=== PATIENT | male | born 1995 | race Caucasian/White ===

== ENCOUNTER 2016-04-17 16:38 | Emergency (ER) | payer SELFPAY ==
[~2016-04-17] VITALS: Ht 180.3 cm; Wt 154.2 kg
[~2016-04-17 16:38] MED LIST: ALBU17AE3; MONT5TAB11
--- NOTE | 2016-04-17 17:15 | ED Cough/URI ---
General Chief Complaint: Cough/Cold/Flu Symptoms Stated Complaint: COUGH Nursing Triage Note: c/o cough/head congestion x 1 week. No acute distress noted. History of Present Illness Time seen by provider: 17:05 Initial Comments Patient presents for productive cough 1 week Timing/Duration: week Severity/Quality: productive cough (clear, green and yellow sputum production) Prior Episodes/Possible Cause: no prior episodes Modifying Factors: Improves With Rest Associated Symptoms: denies symptoms History of asthma, hasn't used a rescue inhaler in 6-8 years. Denies any wheezing or shortness of breath Allergies and Home Medications Allergies Coded Allergies: No Known Allergies (Unverified Allergy, Mild, 03/25/09) Home Medications Guaifenesin/Pseudoephedrne HCl 1 Each Tab.er.12h #12 1 EACH PO BID Prescribed by: LINO MAHONEY on 04/17/16 8329 Constitutional: no symptoms reported see HPI EENTM: nose congestion (worse approximately 3-4 days ago improving at this time) see HPINo dental problems, No ear pain, No hoarseness, No mouth pain, No throat pain, No throat swelling Respiratory: see HPI coughNo dyspnea on exertion, No hemoptysis, No wheezing Gastrointestinal: no symptoms reported see HPI Genitourinary: no symptoms reported see HPI Musculoskeletal: no symptoms reported see HPI Skin: no symptoms reported see HPI Psychiatric/Neurological: No Symptoms Reported See HPI Hematologic/Lymphatic: No Symptoms Reported See HPI Immunological/Allergic: no symptoms reported see HPI All Other Systems Reviewed Negative Unless Noted: Yes Past Rjdrfwg-Abwnae-Kespbl Hx Patient Social History Alcohol Use: Denies Use Recreational Drug Use: No Smoking Status: Never a Smoker Recent Foreign Travel: No Contact w/Someone Who Travel: No Recent Infectious Disease Expo: No Recent Hopitalizations: No Physical Abuse Screen: No Sexual Abuse: No Surgeries HX Surgeries: No Respiratory Hx Respiratory Disorders: Yes Respiratory Disorders: Asthma Cardiovascular Hx Cardiac Disorders: No Neurological Hx Neurological Disorders: No Reproductive System Hx Reproductive Disorders: No Genitourinary Hx Genitourinary Disorders: No Gastrointestinal Hx Gastrointestinal Disorders: No Musculoskeletal Hx Musculoskeletal Disorders: No Endocrine Hx Endocrine Disorders: No HEENT HX ENT Disorders: No Cancer Hx Cancer: No Psychosocial Hx Psychiatric Problems: No Integumentary HX Skin/Integumentary Disorder: No Blood Transfusions Hx Blood Disorders: No Reviewed Nursing Assessment Reviewed/Agree w Nursing PMH: Yes Physical Exam Vital Signs Vital Sign - Last 12Hours 04/17/16 16:59 Temp 97.5 Pulse 70 Resp 16 B/P 150/87 Pulse Ox 98 O2 Delivery Room Air Capillary Refill : Less Than 3 Seconds General Appearance: WD/WN no apparent distress Eyes: Bilateral Eye EOMI, Bilateral Eye Normal Inspection, Bilateral Eye PERRL HEENT: PERRL/EOMI normal ENT inspection TMs normalNo pharyngeal erythema, No tonsillar exudate, other (Right tonsil 2+, no erythema or exudate. No frontal or maxillary sinus tenderness. ) Neck: non-tender full range of motion normal inspectionNo lymphadenopathy (R) , No lymphadenopathy (L) Respiratory: chest non-tender lungs clear normal breath sounds no respiratory distress Cardiovascular: normal peripheral pulses regular rate, rhythm no edema no murmur Gastrointestinal: normal bowel sounds non tender soft no organomegaly no pulsatile mass Extremities: normal range of motion non-tender normal inspection no pedal edema normal capillary refill Neurologic/Psychiatric: no motor/sensory deficits alert normal mood/affect oriented x 3 Skin: normal color warm/dry Lymphatic: no adenopathy Progress/Results/Core Measures Results/Orders Vital Signs/I&O Vital Sign - Last 12Hours 04/17/16 16:59 Temp 97.5 Pulse 70 Resp 16 B/P 150/87 Pulse Ox 98 O2 Delivery Room Air Blood Pressure Mean: 108 Departure Impression Impression: Primary Impression: Viral upper respiratory illness Disposition: 01 HOME, SELF-CARE Condition: Stable Departure-Patient Inst. Decision time for Depature: 17:10 Referrals: NO,LOCAL PHYSICIAN (PCP/Family) Primary Care Physician Patient Instructions: Cough, Runny Nose, and the Common Cold (DC) Add. Discharge Instructions: All discharge instructions reviewed with patient and/or family. Voiced understanding. Nasal saline spray every 2-4 hour. Tylenol 650 mg alternating every 4-6 hours with Ibuprofen 600 mg for fever or body aches. Return to ER or [facility] if symptoms don't improve in 3-4 days or worsen. Scripts Guaifenesin/Pseudoephedrne HCl (Mucinex D ER 1,200-120 mg Tab)1 Each Tab.er.12h1 Each PO BID Congestion #12 TAB Ref 0 Prov:LINO MAHONEY 04/17/16 LINO MAHONEY Apr 17, 2016 17:15
[2016-04-17] MEDS ORDERED: GUAI-365 PO (17:16)
[2016-04-17 17:17] VITALS: BP 148/82
== END 2016-04-17 17:20 | disposition home or self-care (01) ==
LOC: EDUNIT# 16:38 → ER 16:41
DX: J06.9 Acute upper respiratory infection, unspecified (principal)

== ENCOUNTER 2018-02-25 17:43 | Emergency (ER) | payer SELFPAY ==
[~2018-02-25] VITALS: Ht 180.3 cm; Wt 154.2 kg
[~2018-02-25 17:43] MED LIST changes: +GUAI-365 PO
[2018-02-25 17:58] VITALS: BP 149/71
--- OUTSIDE RECORDS SUMMARY | 2018-02-25 18:19 | XMS REPORT | Continuity of Care Document ---
Author Author Formerly [facility] Address Unknown Phone Unavailable Allergies Active Description Code Type Severity Reaction Onset Reported/Identified Relationship to Patient Clinical Status Yes NKANo Known Allergies NKA Miscellaneous Allergy Mild N/A 03/25/2009 Medications There is no data. Problems Date Dx Coded Attending Type Code Diagnosis Diagnosed By 07/16/2009 MARICEL NEWTON APRN V06.5 DT, TETANUS-DIPHTHERIA [Td] ,TDAP 07/16/2009 THO COX DO V06.5 DT, TETANUS-DIPHTHERIA [Td] ,TDAP 02/19/2014 MARICEL NEWTON APRN 786.50 CHEST PAIN 02/19/2014 THO COX DO 786.50 CHEST PAIN 05/22/2014 THO COX DO 278.00 OBESITY 05/22/2014 THO COX DO 493.90 ASTHMA UNSPECIFIED Procedures Code [place] [address] EKG, TRACING 02/19/2014 54688 XRAY CHEST 2 VIEW 02/24/2014 45184 ROUTINE VENIPUNCTURE 02/24/2014 95659 A1C (IN-HOUSE) 02/24/2014 [id number] GFR CALC (RESULT ONLY) 02/24/2014 40245 CMP 02/24/2014 69834 LIPID PANEL 02/24/2014 63477 MAGNESIUM 02/24/2014 12582 CBC 02/24/2014 15561 TSH 02/24/2014 CARDIOLOG BLANE SOLITARIO 03/03/2014 Results Test Result Range CBC - 01/15/18 15:50 WHITE BLOOD CELL COUNT 8.8 Thousand/uL 3.8-10.8 RED BLOOD CELL COUNT 4.97 Million/uL 4.20-5.80 HEMOGLOBIN 14.2 g/dL 13.2-17.1 HEMATOCRIT 42.3 % 38.5-50.0 MCV 85.1 fL 80.0-100.0 MCH 28.6 pg 27.0-33.0 MCHC 33.6 g/dL 32.0-36.0 RDW 13.1 % 11.0-15.0 PLATELET COUNT 327 Thousand/uL 140-400 MPV 11.4 fL 7.5-12.5 ABSOLUTE NEUTROPHILS 5482 cells/uL 5262-5543 ABSOLUTE LYMPHOCYTES 2077 cells/uL 850-3900 ABSOLUTE MONOCYTES 871 cells/uL 200-950 ABSOLUTE EOSINOPHILS 238 cells/uL 15-500 ABSOLUTE BASOPHILS 132 cells/uL 0-200 NEUTROPHILS 62.3 % NRG LYMPHOCYTES 23.6 % NRG MONOCYTES 9.9 % NRG EOSINOPHILS 2.7 % NRG BASOPHILS 1.5 % NRG Encounters ACCT No. Visit Date/Time Discharge Status Pt. Type Provider Facility Loc./Unit Complaint [id number] 05/22/2014 08:50:00 05/22/2014 23:59:59 CLS Outpatient THO COX DO [id number] 02/24/2014 08:52:00 02/24/2014 23:59:59 CLS Outpatient MARICEL NEWTON APRN [id number] 01/15/2018 15:00:00 Document Registration [id number] 04/17/2016 16:41:00 04/17/2016 17:20:00 DIS Emergency LINO MAHONEY Via [facility] ER COUGH
== END 2018-02-25 19:08 | disposition left against medical advice (07) ==
LOC: EDUNIT# 17:43 → ER 17:45
DX: R07.89 Other chest pain (principal); R20.0 Anesthesia of skin
CPT/HCPCS: 93005

== ENCOUNTER 2021-04-15 05:13 | Emergency (ER) | payer SELFPAY ==
[~2021-04-15] VITALS: Ht 183 cm; Wt 150.0 kg
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
[2021-04-15] MEDS ORDERED: TRAM-42 PO (07:16)
--- NOTE | 2021-04-15 07:17 | Diagnostic Imaging Report ---
EXAM: HAND, LEFT, 3 VIEWS INDICATION: Left hand pain. COMPARISON: None. FINDINGS: Displaced fragment through the dorsal base of the left 4th distal phalanx. No other fracture or malalignment. No radiopaque foreign bodies. IMPRESSION: Displaced fracture involving the dorsal base of the left 4th distal phalanx. Dictated by: Dictated on workstation # [id number]
[2021-04-15 07:21] VITALS: BP 149/84
== END 2021-04-15 07:21 | disposition home or self-care (01) ==
LOC: EDUNIT# 05:13 → ER 05:17
DX: S62.635A Displaced fracture of distal phalanx of left ring finger, initial encounter for closed fracture (principal); Y09 Assault by unspecified means; J45.909 Unspecified asthma, uncomplicated; E66.9 Obesity, unspecified; Z68.41 Body mass index [BMI] 40.0-44.9, adult; F12.90 Cannabis use, unspecified, uncomplicated; F17.210 Nicotine dependence, cigarettes, uncomplicated
CPT/HCPCS: 73130